=== PATIENT | male | born 1970 | race Caucasian/White ===

== ENCOUNTER → 2017-12-12 20:23 | Outpatient (REF) | payer MEDICARE, SELFPAY ==
[2017-12-16 08:25] LABS: Codeine Negative ng/mL (Cutoff: 25); Dihydrocodeine Negative ng/mL (Cutoff: 25); Hydrocodone Negative ng/mL (Cutoff: 25); Hydromorphone Negative ng/mL (Cutoff: 25); Morphine Negative ng/mL (Cutoff: 25); Naloxone Negative ng/mL (Cutoff: 25); Norhydrocodone Negative ng/mL (Cutoff: 25); Noroxycodone Negative ng/mL (Cutoff: 25); Noroxymorphone Negative ng/mL (Cutoff: 25); Opiates Interpretation Negative.
[2017-12-20 14:45] LABS: Fentanyl Interpretation Positive.; Fentanyl by LC-MS/MS >200 ng/mL; Norfentanyl by LC-MS/MS >1000 ng/mL
== END ==
LOC: NCHCN 20:23
PROVIDERS: PCP Physician Assistant Medical; Visit Provider Physician Assistant Medical
DX: Z51.81 Encounter for therapeutic drug level monitoring (principal); F11.20 Opioid dependence, uncomplicated
CPT/HCPCS: 80361; 80354

== ENCOUNTER 2018-03-13 12:25 | Outpatient (REF) | payer MEDICARE, SELFPAY ==
[2018-03-13 21:42] LABS: ALT 38 U/L (12-78); AST 19 U/L (15-37); Alkaline Phosphatase 101 U/L (46-116); Anion Gap 6.8 mmol/L (3-11); BUN 12 mg/dL (7-18); Bilirubin, Total 0.3 mg/dL (0.2-1.0); CO2 29.2 mmol/L (21.0-32.0); CREATININE 0.92 mg/dL (0.70-1.30); Calcium 9.2 mg/dL (8.5-10.1); Chloride 102 mmol/L (98-107); Cholesterol 163 mg/dL (50-200); Glucose 107 mg/dL (70-100); HDL Cholesterol 39 mg/dL (40-60); LDL CHOLESTEROL 110 mg/dL (<100); Potassium 4.6 mmol/L (3.5-5.1); Sodium 138 mmol/L (136-145); Total Protein 7.4 g/dL (6.4-8.2); Triglyceride 56 mg/dL (30-150)
== END 2018-03-13 12:45 ==
LOC: NCHCN 12:25
PROVIDERS: PCP Physician Assistant Medical; Visit Provider Physician Assistant Medical
DX: E78.5 Hyperlipidemia, unspecified (principal); I10 Essential (primary) hypertension; R73.09 Other abnormal glucose
CPT/HCPCS: 80053; 80061; 83721; 83036

== ENCOUNTER 2018-06-09 20:19 | Outpatient (REF) | payer MEDICARE, SELFPAY ==
[2018-06-14 09:43] LABS: Codeine Negative ng/mL (Cutoff: 25); Dihydrocodeine 567 ng/mL (Cutoff: 25); Hydrocodone 8408 ng/mL (Cutoff: 25); Hydromorphone 191 ng/mL (Cutoff: 25); Morphine Negative ng/mL (Cutoff: 25); Naloxone Negative ng/mL (Cutoff: 25); Norhydrocodone 8453 ng/mL (Cutoff: 25); Noroxycodone Negative ng/mL (Cutoff: 25); Noroxymorphone Negative ng/mL (Cutoff: 25); Opiates Interpretation Positive.
== END 2018-06-09 20:39 ==
LOC: NCHCN 20:19
PROVIDERS: PCP Physician Assistant Medical; Visit Provider Physician Assistant Medical
DX: F11.20 Opioid dependence, uncomplicated (principal); Z51.81 Encounter for therapeutic drug level monitoring; M54.89 Other dorsalgia
CPT/HCPCS: 80361

== ENCOUNTER 2018-11-01 11:05 | Outpatient (REF) | payer MEDICARE, SELFPAY ==
[2018-11-01 21:11] LABS: Anion Gap 14.5 mmol/L (3-11); BUN 11 mg/dL (7-18); CO2 21.5 mmol/L (21.0-32.0); CREATININE 0.85 mg/dL (0.70-1.30); Calcium 9.3 mg/dL (8.5-10.1); Chloride 104 mmol/L (98-107); Glucose 112 mg/dL (70-100); Potassium 4.1 mmol/L (3.5-5.1); Sodium 140 mmol/L (136-145)
== END 2018-11-01 11:25 ==
LOC: NCHCN 11:05
PROVIDERS: PCP Physician Assistant Medical; Visit Provider Physician Assistant Medical
DX: I10 Essential (primary) hypertension (principal)
CPT/HCPCS: 80048

== ENCOUNTER 2019-02-28 12:07 | Outpatient (REF) | payer MEDICARE, SELFPAY ==
[2019-02-28 20:32] LABS: ALT 36 U/L (16-63); AST 23 U/L (15-37); Albumin 4.4 g/dL (3.4-5.0); Alkaline Phosphatase 98 U/L (46-116); Anion Gap 12.7 mmol/L (3-11); BUN 19 mg/dL (7-18); Bilirubin, Total 0.4 mg/dL (0.2-1.0); CO2 22.3 mmol/L (21.0-32.0); CREATININE 1.01 mg/dL (0.70-1.30); Calcium 9.4 mg/dL (8.5-10.1); Calculated LDL 109 mg/dL; Chloride 101 mmol/L (98-107); Cholesterol 161 mg/dL (50-200); Glucose 144 mg/dL (70-100); HDL Cholesterol 38 mg/dL (40-60); Potassium 4.9 mmol/L (3.5-5.1); Sodium 136 mmol/L (136-145); Total Protein 8.1 g/dL (6.4-8.2); Triglyceride 73 mg/dL (30-150)
== END 2019-02-28 12:27 ==
LOC: NCHCN 12:07
PROVIDERS: PCP Physician Assistant Medical; Visit Provider Physician Assistant Medical
DX: I10 Essential (primary) hypertension (principal); E78.5 Hyperlipidemia, unspecified; R73.01 Impaired fasting glucose
CPT/HCPCS: 80053; 80061; 83036

== ENCOUNTER 2020-02-26 21:29 | Outpatient (REF) | payer MEDICARE, SELFPAY ==
[2020-02-26 20:48] LABS: ALT 28 U/L (16-63); AST 20 U/L (15-37); Albumin 4.1 g/dL (3.4-5.0); Alkaline Phosphatase 89 U/L (46-116); Anion Gap 7.9 mmol/L (3-11); BUN 10 mg/dL (7-18); Bilirubin, Total 0.4 mg/dL (0.2-1.0); CO2 28.1 mmol/L (21.0-32.0); CREATININE 0.88 mg/dL (0.70-1.30); Calcium 8.9 mg/dL (8.5-10.1); Calculated LDL 107 mg/dL (<100); Chloride 102 mmol/L (98-107); Cholesterol 155 mg/dL (<200); Glucose 133 mg/dL (74-106); HDL Cholesterol 37 mg/dL (40-60); Sodium 138 mmol/L (136-145); Total Protein 7.4 g/dL (6.4-8.2); Triglyceride 57 mg/dL (<150)
[2020-03-01 01:08] LABS: Benzoylecgonine Negative ng/mL (Cutoff: 50); Cocaine Negative ng/mL (Cutoff: 50); Cocaine Interpretation Negative.
[2020-03-01 10:48] LABS: Fentanyl Interpretation Positive.; Fentanyl by LC-MS/MS 151.4 ng/mL; Norfentanyl by LC-MS/MS 422.7 ng/mL
[2020-03-01 11:51] LABS: Codeine Negative ng/mL (Cutoff: 25); Dihydrocodeine Negative ng/mL (Cutoff: 25); Hydrocodone Negative ng/mL (Cutoff: 25); Hydromorphone Negative ng/mL (Cutoff: 25); Morphine Negative ng/mL (Cutoff: 25); Naloxone 245 ng/mL (Cutoff: 25); Norhydrocodone Negative ng/mL (Cutoff: 25); Noroxycodone 18854 ng/mL (Cutoff: 25); Noroxymorphone 271 ng/mL (Cutoff: 25); Opiates Interpretation Positive.
[2020-03-04 09:10] LABS: Buprenorphine 725.9 ng/mL; Norbuprenorphine Negative
== END 2020-02-26 21:49 ==
LOC: NCHCN 21:29
PROVIDERS: PCP Physician Assistant Medical; Visit Provider Physician Assistant Medical
DX: I10 Essential (primary) hypertension (principal); E78.5 Hyperlipidemia, unspecified; R73.03 Prediabetes; M54.89 Other dorsalgia; F11.20 Opioid dependence, uncomplicated; Z79.899 Other long term (current) drug therapy
CPT/HCPCS: 80053; 80061; 80307; 80333; 80361; 80353; 80354

== ENCOUNTER 2020-07-02 10:51 | Outpatient (REF) | payer MEDICARE, SELFPAY ==
[2020-07-03 13:17] LABS: COVID-19 RT-PCR UVMMC Result Negative (Negative)
== END 2020-07-02 10:52 | disposition home or self-care (01) ==
LOC: NCHCN 10:51
PROVIDERS: PCP Physician Assistant Medical; Visit Provider Physician Assistant Medical
DX: Z20.822 Contact with and (suspected) exposure to COVID-19 (principal); Z01.818 Encounter for other preprocedural examination
CPT/HCPCS: U0003; U0005

== ENCOUNTER 2020-08-22 15:21 | Outpatient (REF) | payer MEDICARE, SELFPAY ==
[2020-08-26 03:42] LABS: EDDP-by GC-MS 8439 ng/mL (Cutoff: 100); Methadone Interpretation Positive.; Methadone-by GC-MS 16606 ng/mL (Cutoff: 100)
[2020-08-28 06:56] LABS: Amphetamine 62 ng/mL (Cutoff: 25); Amphetamines Interpretation Positive.; MDA (Ecstasy Metabolite) Negative ng/mL (Cutoff: 25); MDMA (Ecstasy) Negative ng/mL (Cutoff: 25); Methamphetamine 278 ng/mL (Cutoff: 25); Phentermine Negative ng/mL (Cutoff: 25); Pseudoephedrine/Ephedrine Negative ng/mL (Cutoff: 25)
== END 2020-08-22 15:22 | disposition home or self-care (01) ==
LOC: NCHCN 15:21
PROVIDERS: PCP Physician Assistant Medical; Visit Provider Physician Assistant Medical
DX: G89.29 Other chronic pain (principal); Z79.891 Long term (current) use of opiate analgesic; Z51.81 Encounter for therapeutic drug level monitoring
CPT/HCPCS: 80324; 80358

== ENCOUNTER 2020-10-20 11:13 | Emergency (ER) | payer MEDICARE, SELFPAY ==
[2020-10-20 11:20] VITALS: BP 110/70; PULSE 51; RESP 18; TEMP 36.2; O2SAT 99
--- NOTE | 2020-10-20 11:56 | ED.GENADUL_ITS ---
Discharge Plan Disposition Patient Disposition: HOME Condition: Stable Discharge Details Clinical Impression: Lightheadedness Primary Care Provider: Iona Elaine ED Provider: Serene Healy Home Meds and New Rx's Prescriptions: Continued methadone 10 mg Tablet 10 mg PO TID RF: 0 lisinopril 10 mg Tablet 10 mg PO HS RF: 0 rosuvastatin [Crestor] 10 mg Tablet 10 mg PO HS RF: 0 duloxetine [Cymbalta] 60 mg Capsule,Delayed Release(Dr/Ec) 60 mg PO DAILY RF: 0 bupropion HCl 100 mg Tablet 100 mg PO HS RF: 0 Discharge Instructions Instructions: Near Syncope (ED) Additional Instructions: You have declined EKG and screening labs. You may return to the emergency department anytime if you change your mind. Please return immediately to the emergency department if you develop any new or worsening symptoms, if your condition does not improve as expected, or if you become otherwise concerned. It is extremely important that you call soon as possible to make an appointment to be seen in follow-up for this visit by your primary care doctor. Referrals: Iona Elaine PA [Primary Care Provider] - Discharge Data Discharge Date/Time-TO BE ENTERED AT DEPARTURE: 10/20/20 12:12 Medical Decision Making Adriano Fournier is a 50 y/o man with h/o HTN, HLD who presented to the ED with episode of lightheadedness, low BP and low HR 2 minutes after receiving J&J covid vaccine, back to baseline after 30 min and now continuing to be asymptomatic. No syncope. H/o similar in the past with other injections. On exam Pt is intermittently sitting on edge of bed and standing up. Appears very well. Pt is requesting to leave. Suspect vagal reaction vs other, possible metabolic/lyte rerangement, doubt arrhythmia. Doubt allergic reaction. Exam/hx at this time not c/w acute coronary syndrome, sepsis, anaphylaxis. I offered Pt EKG, screening labs, IVF hydration. Pt refused all further evaluation. I had a lengthy discussion with Patient regarding return to emergency department precautions, home care, and importance of outpatient follow-up. Pt verbalizes understanding of the plan and is amenable. Patient discharged to home with clear plan for outpatient follow-up. All questions were answered. Disposition decision was made weighing the risks and benefits of hospitalization versus outpatient treatment, the risk for further decompensation, and the patient's wishes. Medical Records Medical records reviewed: Yes I reviewed the patient's medical records. HPI General Mode of arrival: ambulatory . Date/Time Provider Initiated Documentation: 10/20/20 11:39 . Limitations to Documentation: no limitations . Information obtained by: patient, family, RN notes reviewed and old records reviewed . HPI Narrative: Adriano Fournier is a 50 y/o man with h/o HLD, HTN who presents to the emergency department with chief complaint lightheadedness. Pt is accompanied by his who also provides the history. Pt reports that at 10:15 this morning he received the J&J covid vaccines. Pt reports that approx two minutes after injection he bagan to feel lightheaded. Vital signs were taken and his BP was reportedly 50s/30s with HR in the 50s. BP improved rapidly without intervention. Pt reports that he gradually began to feel better, and felt back to normal 30 minutes after episode. Pt reports that he continues to feel very well and at baseline, denies having any symptoms. Pt states that he only came to the ED because his insisted. Pt's states that she was very concerned after witnessing episode, but states that she now thinks he's fine, he's been back to normal for a long time now. Pt reports that he felt well and in his usual state of health this am prior to vaccination. He denies any prior symptoms. He denies any pain, SOB, cough, vomiting, diarrhea, rash, itching, swelling, numbness, weakness, fever now or after injection. Pt reports that in the past he has occasionally had the same reaction to other injections, particularly with steroid injections. Pt states that he would like to leave without further intervention. Related Data Home Medications Medication Instructions Recorded Confirmed bupropion HCl 100 mg PO HS 10/20/20 10/20/20 duloxetine [Cymbalta] 60 mg PO DAILY 10/20/20 10/20/20 lisinopril 10 mg PO HS 10/20/20 10/20/20 methadone 10 mg PO TID 10/20/20 10/20/20 rosuvastatin [Crestor] 10 mg PO HS 10/20/20 10/20/20 Allergies Allergy/AdvReac Type Severity Reaction Status Date / Time amoxicillin [Amoxicillin] Allergy Intermediate Skin Rash Unverified 10/20/20 11:27 atorvastatin calcium Allergy Intermediate muscle Unverified 10/20/20 11:27 [From Lipitor] weakness General Stated Complaint: Nausea/Vomit/Diar KAYLA: 4 Review of Systems Narrative: Constitutional: denies fevers Eyes: denies eye pain ENT: denies ear pain, dental pain, sore throat Cardiovascular: denies chest pain, palpitations, reports lightheadedness Respiratory: denies SOB, cough GI: denies abdominal pain, vomiting, diarrhea : denies flank pain MSK: denies back pain, neck pain, arthralgias, myalgias Skin: denies rash Neuro: denies headaches, numbness, weakness PFSH Social History Smoking/Tobacco Use Status: Current every day Tobacco Type: cigarettes Smoking risk assessment performed?: Yes Alcohol Intake: former Drug use: Daily Substance use type: marijuana Do you feel safe at home: Yes Do you feel safe in your relationship?: Yes Exam Narrative Exam Narrative: Constitutional: well and [id number], pleasant, conversing normally HENT: head atraumatic/normocephalic/normal inspection, mucous membranes moist Eyes: conjunctiva normal, sclera normal, pupils 3mm b/l Neck: no stridor, normal ROM, trachea midline Resp: normal work of breathing, speaking in full sentences Cardio: normal rate, normal rhythm Skin: warm, dry, normal color, no rash Neuro: alert, not altered, grossly non-focal, normal tone Ext: no edema, moving all extremities equally Psych: normal mood, normal affect, normal behavior Course Vital Signs Vital signs: Vital Signs Temperature 36.2 C L 10/20/20 11:20 Pulse 51 L 10/20/20 11:20 Respiratory Rate 18 10/20/20 11:20 Blood Pressure 110/70 10/20/20 11:20 Pulse Oximetry 99 10/20/20 11:20 Temperature 36.2 C L 10/20/20 11:20 Temperature Source Temporal Artery Scan 10/20/20 11:20 Pulse 51 L 10/20/20 11:20 Respiratory Rate 18 10/20/20 11:20 Respiratory Effort Non-Labored 10/20/20 11:31 Blood Pressure 110/70 10/20/20 11:20 Blood Pressure Position Sitting 10/20/20 11:20 Pulse Oximetry 99 10/20/20 11:20 Oxygen Delivery Method Room Air 10/20/20 11:20 Oxygen Flow Rate 0 10/20/20 11:20 Pain Level 0 10/20/20 11:20
[2020-10-20 12:07] VITALS: BP 105/67; PULSE 53; RESP 16; O2SAT 97
== END 2020-10-20 12:12 | disposition home or self-care (01) ==
PROVIDERS: Emergency Provider Student in an Organized Health Care Education/Training Program; PCP Physician Assistant Medical
DX: R42 Dizziness and giddiness (principal); I95.9 Hypotension, unspecified; R00.1 Bradycardia, unspecified; T50.B95A Adverse effect of other viral vaccines, initial encounter
CPT/HCPCS: 99281; 99283

== ENCOUNTER 2021-02-23 11:16 | Outpatient (REF) | payer MEDICARE, SELFPAY ==
[2021-02-23 14:22] LABS: Hemoglobin A1C 5.7 % (<5.7)
[2021-02-23 14:33] LABS: ALT 23 U/L (16-63); AST 17 U/L (15-37); Alkaline Phosphatase 107 U/L (46-116); Anion Gap 11.2 mmol/L (3-11); BUN 12 mg/dL (7-18); Bilirubin, Total 0.3 mg/dL (0.2-1.0); CO2 23.8 mmol/L (21.0-32.0); CREATININE 0.9 mg/dL (0.70-1.30); Calcium 9.1 mg/dL (8.5-10.1); Calculated LDL 138 mg/dL (<100); Chloride 104 mmol/L (98-107); Cholesterol 187 mg/dL (<200); Glucose 119 mg/dL (74-106); HDL Cholesterol 40 mg/dL (40-60); Potassium 4.6 mmol/L (3.5-5.1); Sodium 139 mmol/L (136-145); Total Protein 7.5 g/dL (6.4-8.2); Triglyceride 47 mg/dL (<150)
== END 2021-02-23 11:17 | disposition home or self-care (01) ==
LOC: NCHCN 11:16
PROVIDERS: PCP Physician Assistant Medical; Visit Provider Physician Assistant Medical
DX: I10 Essential (primary) hypertension (principal); E78.5 Hyperlipidemia, unspecified; R73.03 Prediabetes
CPT/HCPCS: 80053; 80061; 83036

== ENCOUNTER 2021-05-22 13:48 | Outpatient (REF) | payer MEDICARE, SELFPAY ==
--- OUTSIDE RECORDS SUMMARY | 2021-05-22 13:50 | XMS_ITS | CCD ---
:1970 Author Care Team Providers Name Role Phone Jeff CHAHLA Attending Physician Unavailable Jeff CHAHAL Rounding (Secondary) Physician Unavailab le Vital Signs Unknown or Not Available. Allergies Allergy Code Allergy Type Reaction Status LIPITOR 315520 Drug allergy RASH Active AMOXICILLIN 723 Drug allergy RASH Active GABAPENTIN 94239 Drug allergy CONFUSION Active Procedures Unknown or Not Available. History of Immunizations Unknown or Not Available. Problems Unknown or Not Available. Results Unknown or Not Available. Active Medications Medication Code Dose Units Frequency Route Modification Start Date/Time Cymbalta 60MG 004107 60 MILLIGRAMS DAILY ORAL 017 Oral Capsule, 22:47 Delayed Release Prescription Detail TAKE 60 MILLIGRAMS ORAL MISTY Y fentaNYL 947963 1 EACH EVERY 72 TRANSDERMAL 04/27/2017 100MCG/1HR HOURS 22:47 Transdermal Patch, Extended Release Prescription Detail APPLY 1 EACH TRANSDERMAL VARGHESE RY 72 HOURS Lisinopril 10MG [id number] 10 MILLIGRAMS DAILY ORAL 04/27 Oral Tablet 22:47 Prescription Detail TAKE 10 MILLIGRAMS ORAL MISTY Y Wellbutrin XL [id number] 300 MILLIGRAMS DAILY ORAL 017 300MG Oral 22:47 Tablet, Extended Release, 24 HR Prescription Detail TAKE 300 MILLIGRAMS ORAL TAMMIE LY Medications Administered During Visit Unknown or Not Available. Encounters Encounter Diagnosis Diagnosis Code Start Date Epidermal cyst L720 03/11/2021 Social History Smoking Status Code Start Date End Date Current every day smoker [id number] Patient Decision Aids Unknown or Not Available. Discharge Instructions You were admitted to [facility] on 03/11/2021 07:50 with a principal diagnosis of Epidermal cyst You were discharged from [facility] on 03/11/2021 00:00 Should you have any questions prior to d ischarge, please contact a member of your healthcare team. If you have left the ho spital and have any questions, please contact your primary care physician. Chief Complaint and Reason For Visit Unknown or Not Available. Function Status Unknown or Not Available. Plan of Care Unknown or Not Available. Referral/Transition of Care Unknown or Not Available.
--- OUTSIDE RECORDS SUMMARY | 2021-05-22 13:50 | XMS_ITS | CCD ---
:1970 Author Care Team Providers Name Role Phone Jeff CHAHAL Attending Physician Unavailable Jeff CHAHAL Rounding (Secondary) Physician Unavailab le Vital Signs Unknown or Not Available. Allergies Allergy Code Allergy Type Reaction Status LIPITOR 386343 Drug allergy RASH Active AMOXICILLIN 723 Drug allergy RASH Active GABAPENTIN 24345 Drug allergy CONFUSION Active Procedures Unknown or Not Available. History of Immunizations Unknown or Not Available. Problems Unknown or Not Available. Results Unknown or Not Available. Active Medications Medication Code Dose Units Frequency Route Modification Start Date/Time Cymbalta 60MG [id number] 60 MILLIGRAMS DAILY ORAL 017 Oral Capsule, 22:47 Delayed Release Prescription Detail TAKE 60 MILLIGRAMS ORAL MISTY Y fentaNYL 630434 1 EACH EVERY 72 TRANSDERMAL 04/27/2017 100MCG/1HR HOURS 22:47 Transdermal Patch, Extended Release Prescription Detail APPLY 1 EACH TRANSDERMAL VARGHESE RY 72 HOURS Lisinopril 10MG 166032 10 MILLIGRAMS DAILY ORAL 04/27 Oral Tablet 22:47 Prescription Detail TAKE 10 MILLIGRAMS ORAL MISTY Y Wellbutrin XL 660859 300 MILLIGRAMS DAILY ORAL 017 300MG Oral 22:47 Tablet, Extended Release, 24 HR Prescription Detail TAKE 300 MILLIGRAMS ORAL TAMMIE LY Medications Administered During Visit Unknown or Not Available. Encounters Unknown or Not Available. Social History Smoking Status Code Start Date End Date Current every day smoker [id number] Patient Decision Aids Unknown or Not Available. Discharge Instructions You were admitted to [facility] on 04/09/2021 11:14 You were discharged from [facility] Should you have any questions prior to [...]
--- OUTSIDE RECORDS SUMMARY | 2021-05-22 13:50 | XMS_ITS | CCD ---
:1970 Author Care Team Providers Name Role Phone Jeff CHAHAL Attending Physician Unavailable Jeff CHAHAL Rounding (Secondary) Physician Unavailab le Vital Signs Unknown or Not Available. Allergies Allergy Code Allergy Type Reaction Status LIPITOR 166120 Drug allergy RASH Active AMOXICILLIN 723 Drug allergy RASH Active GABAPENTIN 47085 Drug allergy CONFUSION Active Procedures Unknown or Not Available. History of Immunizations Unknown or Not Available. Problems Unknown or Not Available. Results Unknown or Not Available. Active Medications Medication Code Dose Units Frequency Route Modification Start Date/Time Cymbalta 60MG 417162 60 MILLIGRAMS DAILY ORAL 017 Oral Capsule, 22:47 Delayed Release Prescription Detail TAKE 60 MILLIGRAMS ORAL MISTY Y fentaNYL 022216 1 EACH EVERY 72 TRANSDERMAL 04/27/2017 100MCG/1HR HOURS 22:47 Transdermal Patch, Extended Release Prescription Detail APPLY 1 EACH TRANSDERMAL VARGHESE RY 72 HOURS Lisinopril 10MG 066270 10 MILLIGRAMS DAILY ORAL 04/27 Oral Tablet 22:47 Prescription Detail TAKE 10 MILLIGRAMS ORAL MISTY Y Wellbutrin XL 970572 300 MILLIGRAMS DAILY ORAL 017 300MG Oral 22:47 Tablet, Extended Release, 24 HR Prescription Detail TAKE 300 MILLIGRAMS ORAL TAMMIE LY Medications Administered During Visit Unknown or Not Available. Encounters Unknown or Not Available. Social History Smoking Status Code Start Date End Date Current every day smoker [id number] Patient Decision Aids Unknown or Not Available. Discharge Instructions You were admitted to [facility] on 03/19/2021 09:03 You were discharged from [facility] Should you have any questions prior [...]
--- OUTSIDE RECORDS SUMMARY | 2021-05-22 13:51 | XMS_ITS | CCD ---
:1970 Author Care Team Providers Name Role Phone MD KATHY Attending Physician Unavailable CRYS MIDDLETON Er Physician 1 Unavailable LISSET Rounding (Secondary) Physician Unavailab le Vital Signs Unknown or Not Available. Allergies Allergy Code Allergy Type Reaction Status LIPITOR 329262 Drug allergy RASH Active AMOXICILLIN 723 Drug allergy RASH Active GABAPENTIN 55307 Drug allergy CONFUSION Active Procedures Unknown or Not Available. History of Immunizations Unknown or Not Available. Problems Unknown or Not Available. Results Unknown or Not Available. Active Medications Medication Code Dose Units Frequency Route Modification Start Date/Time Cymbalta 60MG 695633 60 MILLIGRAMS DAILY ORAL 017 Oral Capsule, 22:47 Delayed Release Prescription Detail TAKE 60 MILLIGRAMS ORAL MISTY Y fentaNYL 824280 1 EACH EVERY 72 TRANSDERMAL 04/27/2017 100MCG/1HR HOURS 22:47 Transdermal Patch, Extended Release Prescription Detail APPLY 1 EACH TRANSDERMAL VARGHESE RY 72 HOURS Lisinopril 10MG 402660 10 MILLIGRAMS DAILY ORAL 04/27 Oral Tablet 22:47 Prescription Detail TAKE 10 MILLIGRAMS ORAL MISTY Y Wellbutrin XL 942285 300 MILLIGRAMS DAILY ORAL 017 300MG Oral 22:47 Tablet, Extended Release, 24 HR Prescription Detail TAKE 300 MILLIGRAMS ORAL TAMMIE LY Medications Administered During Visit Unknown or Not Available. Encounters Encounter Diagnosis Diagnosis Code Start Date Injury of conjunctiva and corneal abrasion [id number] 01/27/2021 without foreign body, left eye, initial encounter Social History Smoking Status Code Start Date End Date Current every day smoker [id number] Patient Decision Aids Unknown or Not Available. Discharge Instructions You were admitted to [facility] on 01/27/2021 17:07 with a principal diagnosis of Injury of conjunctiva and c orneal abrasion without foreign body, left eye, initial encounter You were discharged from [facility] on 01/27/2021 17:49 Should you have any questions prior to d ischarge, please contact a member of your healthcare team. If you have left the ho spital and have any questions, please contact your primary care physician. Chief Complaint and Reason For Visit Chief Complaint Date of Onset RIGHT EYE FOREIGN BODY Function Status Unknown or Not Available. Plan of Care Unknown or Not Available. Referral/Transition of Care Unknown or Not Available.
[2021-05-22 16:29] LABS: ALT 28 U/L (16-63); AST 19 U/L (15-37); Albumin 4.3 g/dL (3.4-5.0); Alkaline Phosphatase 113 U/L (46-116); Anion Gap 8.6 mmol/L (3-11); BUN 20 mg/dL (7-18); Bilirubin, Total 0.2 mg/dL (0.2-1.0); CO2 26.4 mmol/L (21.0-32.0); Calcium 9.3 mg/dL (8.5-10.1); Calculated LDL 102 mg/dL (<100); Chloride 102 mmol/L (98-107); Cholesterol 169 mg/dL (<200); Glucose 118 mg/dL (74-106); HDL Cholesterol 39 mg/dL (40-60); Potassium 4.2 mmol/L (3.5-5.1); Sodium 137 mmol/L (136-145); Total Protein 7.6 g/dL (6.4-8.2); Triglyceride 141 mg/dL (<150)
== END 2021-05-22 13:49 | disposition home or self-care (01) ==
LOC: NCHCN 13:48
PROVIDERS: PCP Physician Assistant Medical; Visit Provider Physician Assistant Medical
DX: R73.03 Prediabetes (principal); I10 Essential (primary) hypertension
CPT/HCPCS: 80053; 80061; 83036

== ENCOUNTER 2022-05-18 16:09 | Outpatient (REF) | payer MEDICARE, SELFPAY ==
[2022-05-18 18:51] LABS: ALT 22 U/L (16-63); AST 24 U/L (15-37); Albumin 4.3 g/dL (3.4-5.0); Alkaline Phosphatase 96 U/L (46-116); Anion Gap 10.2 mmol/L (3-11); BUN 16 mg/dL (7-18); Bilirubin, Total 0.4 mg/dL (0.2-1.0); CO2 24.8 mmol/L (21.0-32.0); CREATININE 0.9 mg/dL (0.70-1.30); Calcium 9.2 mg/dL (8.5-10.1); Calculated LDL 104 mg/dL (<100); Chloride 103 mmol/L (98-107); Cholesterol 156 mg/dL (<200); Estimated GFR 101.49 (mL/min/1.73m2); Glucose 105 mg/dL (74-106); HDL Cholesterol 42 mg/dL (40-60); Potassium 3.8 mmol/L (3.5-5.1); Sodium 138 mmol/L (136-145); Total Protein 8.2 g/dL (6.4-8.2); Triglyceride 52 mg/dL (<150)
[2022-05-18 20:15] LABS: Hemoglobin A1C 5.7 % (<5.7)
== END 2022-05-18 16:10 | disposition home or self-care (01) ==
LOC: NCHCN 16:09
PROVIDERS: PCP Physician Assistant Medical; Visit Provider Physician Assistant Medical
DX: E78.5 Hyperlipidemia, unspecified (principal); I10 Essential (primary) hypertension
CPT/HCPCS: 80053; 80061; 83036

== ENCOUNTER 2022-09-20 18:46 | Outpatient (REF) | payer MEDICARE, MEDICAID, SELFPAY ==
[2022-09-20 17:18] LABS: HCT 34.4 % (40.0-50.0); HGB 11.5 g/dL (13.5-17.5); MCH 31.7 pg (27.0-33.0); MCHC 33.4 % (32.0-36.0); MCV 95 fL (80-95); RBC 3.63 10^6/uL (4.36-5.78); RDW 14.6 % (11.8-14.1); RDW-SD 49.8 fL; WBC 10.61 10^3/uL (4.4-10.8)
[2022-09-20 18:10] LABS: Platelet Count 736 10^3/uL (130-400)
== END 2022-09-20 18:47 | disposition home or self-care (01) ==
LOC: NCHCN 18:46
PROVIDERS: PCP Physician Assistant Medical; Visit Provider Family Medicine
DX: I10 Essential (primary) hypertension (principal); Q23.1 Congenital insufficiency of aortic valve
CPT/HCPCS: 85027